=== PATIENT | female | born 1955 | race Caucasian/White ===

== ENCOUNTER 2019-12-24 06:53 | Inpatient (IN) | payer MEDICAID ==
[2019-12-24] VITALS (87 sets, daily range): BP systolic 95–207; BP diastolic 26–190
[~2019-12-24] VITALS: Ht 167.6 cm; Wt 78.0 kg
[~2019-12-24 06:53] MED LIST: ATOR10TA69 PO; FOLI-43 PO; LEVO75TA7 PO; OMEP10CA5 PO; SPIR100T5 PO; TOPUD PO; XAR15 PO
[2019-12-24] MEDS ORDERED: LACTATED RINGERS 1,000 ML IV SCH (08:00)
[2019-12-24 08:11] LABS: BASOPHILS % 0.8 % (0.0-2.0); EOSINOPHILS % 6.1 % (0.0-5.0); HEMATOCRIT. 41.2 % (36.0-48.0); HEMOGLOBIN. 14.2 g/dL (12.0-16.0); LYMPHOCYTES % 22.1 % (20.0-50.0); MEAN CORPUSCULAR HEMOGLOBIN 32.1 pg (28.0-32.0); MEAN CORPUSCULAR VOLUME 92.9 fL (81.0-99.0); MEAN PLATELET VOLUME 8.9 fl (7.4-10.4); MONOCYTES % 12.8 % (2.0-8.0); NEUTROPHILS % 58.2 % (40.0-76.0); PLATELET 221 x1000/uL (130-400); RED BLOOD CELL COUNT 4.44 mill/uL (4.2-5.4); RED CELL DISTRIBUTION WIDTH 14.1 % (11.6-14.6)
[2019-12-24 08:15] LABS: CLARITY URINE CLOUDY (CLEAR); COLOR URINE YELLOW (YELLOW); KETONES URINE NEGATIVE (NEGATIVE); LEUKOCYTE ESTERASE URINE 1+ (NEGATIVE); NITRITE URINE NEGATIVE (NEGATIVE); OCCULT BLOOD URINE NEGATIVE (NEGATIVE); PH URINE 6.5 (4.5-8.0); PROTEIN URINE NEGATIVE (NEGATIVE); SPECIFIC GRAVITY URINE 1.018 (1.005-1.030); UROBILINOGEN URINE 0.2 E.U./dL (0.2-1.0)
[2019-12-24 08:19] LABS: INR 0.9; PARTIAL THROMBOPLASTIN TIME 26.1 sec (23.4-31.0); PROTHROMBIN TIME 10.2 sec (9.6-11.0)
[2019-12-24] MEDS ORDERED: THROMBIN (BOVINE) 5000 UNITS/VIAL TOP ONE (08:24)
[2019-12-24] MEDS ORDERED: LIDOCAINE HCL/EPINEPHRINE 1%-EPI 1:100,000 20 ML VIAL ONE (08:25)
[2019-12-24] MEDS ORDERED: BACITRACIN 50,000 UNITS/VIAL ONE (08:26)
[2019-12-24] MEDS ORDERED: EZET1TAB PO (08:30)
[2019-12-24] MEDS ORDERED: FENTANYL CITRATE/PF 50MCG/ML 2ML VIAL ONE ×3 (09:09→10:07)
[2019-12-24] MEDS ORDERED: DEXAMETHASONE 4MG/ML 1ML VIAL ONE (09:10)
[2019-12-24] MEDS ORDERED: SODIUM CHLORIDE 0.9% 10ML VIAL ONE (09:10)
[2019-12-24] MEDS ORDERED: SUCCINYLCHOLINE CHLORIDE 200MG/10ML IV ONE (09:10)
[2019-12-24] MEDS ORDERED: GLYCOPYRROLATE 0.2 MG/ML 2ML VIAL ONE (09:10)
[2019-12-24] MEDS ORDERED: NEOSTIGMINE METHYLSULFATE 1MG/ML 10 ML VIAL ONE (09:10)
[2019-12-24] MEDS ORDERED: METOCLOPRAMIDE HCL 10MG/2ML VIAL ONE (09:10)
[2019-12-24] MEDS ORDERED: MIDAZOLAM HCL 2 MG/2 ML VIAL ONE (09:10)
[2019-12-24] MEDS ORDERED: PROPOFOL 200MG/20ML VIAL IV ONE ×2 (09:10→10:11)
[2019-12-24] MEDS ORDERED: ONDANSETRON HCL 4MG/2ML INJ ONE (09:10)
[2019-12-24] MEDS ORDERED: CEFAZOLIN SODIUM 1000MG/VIAL ONE (09:10)
[2019-12-24] MEDS ORDERED: PHENYLEPHRINE HCL 10 MG/ML 1ML (IV VIAL) IV ONE (09:10)
[2019-12-24] MEDS ORDERED: EPHEDRINE SULFATE 50MG/ML VIAL ONE (09:10)
[2019-12-24] MEDS ORDERED: ROCURONIUM BROMIDE 10MG/ML VIAL 5ML IV ONE ×2 (09:10→09:43)
[2019-12-24] MEDS ORDERED: OXYB5TAB17 PO (09:28)
[2019-12-24] MEDS ORDERED: NICARDIPINE 100 MG in SODIUM CHLORIDE 0.9% 60 ML IV PRN (09:30)
[2019-12-24] MEDS ORDERED: CHOL200077 PO (09:30)
[2019-12-24] MEDS ORDERED: ONDANSETRON HCL 4MG/2ML INJ IV PRN (09:30)
[2019-12-24] MEDS ORDERED: ASCO-339 PO (09:36)
[2019-12-24] MEDS ORDERED: HYDROMORPHONE HCL/PF 2MG/ML CPJ IV PRN (11:15)
[2019-12-24] MEDS: DEXT 5%/LACTATED RINGERS 1,000 ML IV SCH ×2 (11:30→21:32)
[2019-12-24] MEDS ORDERED: HYDROMORPHONE PCA 10MG/50ML IV PRN (11:45)
[2019-12-24] MEDS ORDERED: NALOXONE INJ IV PRN (11:45)
[2019-12-24] MEDS ORDERED: ONDANSETRON INJ IV PRN (11:45)
[2019-12-24] MEDS ORDERED: DIPHENHYDRAMINE INJ IV PRN (11:45)
[2019-12-24] MEDS: DEXAMETHASONE 4MG/ML 1ML VIAL IV SCH ×2 (12:42→18:22)
[2019-12-24] MEDS: CEFAZOLIN 1000MG PREMIX 50 ML IV SCH ×2 (13:35→21:32)
[2019-12-24] MEDS ORDERED: CEFAZOLIN SODIUM 1000MG/VIAL IV SCH (14:00)
[2019-12-24] MEDS ORDERED: IPRATROPIUM/ALBUTEROL 0.5-3(2.5)MG/3ML NEB HHN PRN (17:30)
[2019-12-24] MEDS ORDERED: BISACODYL 5MG TABLET PO PRN (17:30)
[2019-12-24] MEDS: LEVOTHYROXINE SODIUM 75MCG TABLET PO SCH (17:45)
[2019-12-24] MEDS: OMEPRAZOLE 20MG CAPSULE EXTENDED RELEASE PO SCH (17:45)
[2019-12-24] MEDS: ATORVASTATIN CALCIUM 10MG TABLET PO SCH (21:00)
[2019-12-25] VITALS (84 sets, daily range): BP systolic 74–188; BP diastolic 49–179
[2019-12-25] MEDS: DEXAMETHASONE 4MG/ML 1ML VIAL IV SCH ×3 (00:34→12:34)
[2019-12-25 06:21] LABS: CHLORIDE 104 mEq/L (98-107); HEMATOCRIT. 40.6 % (36.0-48.0); HEMOGLOBIN. 13.7 g/dL (12.0-16.0); MEAN CORPUSCULAR HEMOGLOBIN 31.3 pg (28.0-32.0); MEAN CORPUSCULAR VOLUME 93.1 fL (81.0-99.0); MEAN PLATELET VOLUME 9.5 fl (7.4-10.4); PLATELET 218 x1000/uL (130-400); RED BLOOD CELL COUNT 4.36 mill/uL (4.2-5.4); RED CELL DISTRIBUTION WIDTH 13.7 % (11.6-14.6)
[2019-12-25] MEDS: CEFAZOLIN 1000MG PREMIX 50 ML IV SCH ×2 (06:26→15:07)
[2019-12-25] MEDS: OMEPRAZOLE 20MG CAPSULE EXTENDED RELEASE PO SCH (06:51)
[2019-12-25] MEDS: LEVOTHYROXINE SODIUM 75MCG TABLET PO SCH (06:51)
[2019-12-25] MEDS: DEXT 5%/LACTATED RINGERS 1,000 ML IV SCH (07:13)
[2019-12-25] MEDS: DOCUSATE SODIUM 250MG CAPSULE PO SCH (10:03)
[2019-12-25 10:19] LABS: PLATELET ESTIMATE NORMAL
[2019-12-25] MEDS ORDERED: HYDROCODONE/ACETAMINOPHEN 5/325MG TABLET PO PRN (12:15)
[2019-12-25] MEDS: AMLODIPINE 5MG TABLET PO SCH (12:40)
[2019-12-25] MEDS: OXYBUTYNIN CHLORIDE 5MG TABLET PO SCH (12:41)
[2019-12-25] MEDS: ATORVASTATIN CALCIUM 10MG TABLET PO SCH (21:11)
[2019-12-26] VITALS: BP 123/68
[2019-12-26] MEDS: DEXT 5%/LACTATED RINGERS 1,000 ML IV SCH (03:17)
[2019-12-26 04:00] VITALS: BP 113/69
[2019-12-26] MEDS: OMEPRAZOLE 20MG CAPSULE EXTENDED RELEASE PO SCH (06:22)
[2019-12-26] MEDS: LEVOTHYROXINE SODIUM 75MCG TABLET PO SCH (06:22)
[2019-12-26 07:23] LABS: HEMATOCRIT. 39.4 % (36.0-48.0); HEMOGLOBIN. 13.3 g/dL (12.0-16.0); MEAN CORPUSCULAR HEMOGLOBIN 31.6 pg (28.0-32.0); MEAN CORPUSCULAR VOLUME 93.3 fL (81.0-99.0); MEAN PLATELET VOLUME 9.9 fl (7.4-10.4); PLATELET 220 x1000/uL (130-400); RED BLOOD CELL COUNT 4.22 mill/uL (4.2-5.4); RED CELL DISTRIBUTION WIDTH 14.2 % (11.6-14.6)
[2019-12-26 07:51] LABS: CHLORIDE 106 mEq/L (98-107)
[2019-12-26 08:00] VITALS: BP 131/78
[2019-12-26] MEDS: DOCUSATE SODIUM 250MG CAPSULE PO SCH (08:37)
[2019-12-26] MEDS: OXYBUTYNIN CHLORIDE 5MG TABLET PO SCH (08:37)
[2019-12-26] MEDS: AMLODIPINE 5MG TABLET PO SCH (08:37)
[2019-12-26 10:29] VITALS: BP 131/78
[2019-12-26 12:00] VITALS: BP 131/87
[2019-12-26 13:59] LABS: PLATELET ESTIMATE NORMAL
== END 2019-12-26 11:55 | disposition home or self-care (01) | DRG 321 ==
LOC: OR 06:53 → 5EST 06:54 → 6EST 12-25 13:39
PROVIDERS: ADMIT Neurological Surgery; ATTEND Neurological Surgery
PROC: 0RB30ZZ Excision of Cervical Vertebral Disc, Open Approach (ICD-10-PCS; principal; 2019-12-24)
PROC: 0RG20J0 Fusion of 2 or more Cervical Vertebral Joints with Synthetic Substitute, Anterior Approach, Anterior Column, Open Approach (ICD-10-PCS; 2019-12-24)
PROC: 4A11X4G Monitoring of Peripheral Nervous Electrical Activity, Intraoperative, External Approach (ICD-10-PCS; 2019-12-24)
PROC: 01N10ZZ Release Cervical Nerve, Open Approach (ICD-10-PCS; 2019-12-24)
DX: M47.12 Other spondylosis with myelopathy, cervical region (principal); G82.50 Quadriplegia, unspecified; M48.02 Spinal stenosis, cervical region; E03.9 Hypothyroidism, unspecified; E78.5 Hyperlipidemia, unspecified; K21.9 Gastro-esophageal reflux disease without esophagitis; M54.12 Radiculopathy, cervical region; I10 Essential (primary) hypertension; R26.89 Other abnormalities of gait and mobility; Z79.01 Long term (current) use of anticoagulants; Z79.1 Long term (current) use of non-steroidal anti-inflammatories (NSAID); Z79.890 Hormone replacement therapy; Z79.899 Other long term (current) drug therapy; Z88.5 Allergy status to narcotic agent; Z91.09 Other allergy status, other than to drugs and biological substances; N32.81 Overactive bladder
CPT/HCPCS: 36415; 72040; 72141; 76000; 80048; 80053; 81003; 85025; 86850; 86900; 88304; 88311; 95925; 95926; 95928; 95929; 97116; 97163; 97166; 97530; 97535; C1713; J0330; J0690; J1100; J2250; J2370; J2405; J2704; J2710; J2765; J3010; J3490; J7050